=== PATIENT | female | born 1975 | race Caucasian/White ===

== ENCOUNTER 2021-05-11 17:31 | Inpatient (IN) ==
[2021-05-11] MEDS ORDERED: cephALEXin 500 MG CAPSULE PO STA (19:01)
[2021-05-11 19:44] LABS: Amphetamine Screen,Urine Positive ng/mL (Cutoff=1000); Barbiturate Screen,Urine Negative ng/mL (Cutoff=200); Benzodiazepines Screen,Urine Negative ng/mL (Cutoff=200); Cannabinoid Screen,Urine Negative ng/mL (Cutoff = 50); Cocaine Screen,Urine Negative ng/mL (Cutoff= 300); Opiate Screen,Urine Negative ng/mL (Cutoff=300); Phencyclidine Screen,Urine Negative ng/mL (Cutoff=25)
[2021-05-11] MEDS ORDERED: Haloperidol Lactate 5 MG/ML VIAL IM PRN (22:16)
[2021-05-11] MEDS ORDERED: Acetaminophen 325 MG TABLET PO PRN (22:16)
[2021-05-11] MEDS ORDERED: hydrOXYzine pamoate 25 MG CAPSULE PO PRN (22:16)
[2021-05-11] MEDS ORDERED: haloperidoL 5 MG TABLET PO PRN (22:16)
[2021-05-11] MEDS ORDERED: *HR* LORazepam 1 MG TABLET PO PRN (22:16)
[2021-05-11] MEDS ORDERED: *HR* LORazepam 2 MG/ML VIAL IM PRN (22:16)
[2021-05-12] MEDS: risperiDONE 1 MG TABLET PO SCH ×3 (00:26→20:58)
[2021-05-12] MEDS: traZODone 50 MG TABLET PO PRN ×2 (00:27→20:58)
[2021-05-12] MEDS: Nitrofurantoin (BID) 100 MG CAPSULE PO SCH ×2 (09:51→17:18)
[2021-05-12] MEDS: Ibuprofen 400 MG TABLET PO PRN (17:50)
[2021-05-13] MEDS: Nicotine 21 MG PATCH.TD24 TD SCH ×2 (00:34→21:09)
[2021-05-13] MEDS: Nitrofurantoin (BID) 100 MG CAPSULE PO SCH ×2 (09:09→17:41)
[2021-05-13] MEDS: risperiDONE 1 MG TABLET PO SCH ×2 (09:20→20:31)
[2021-05-13] MEDS: Neosporin OINT 15 GM TUBE TP SCH ×2 (13:28→21:07)
[2021-05-13] MEDS: Ibuprofen 400 MG TABLET PO PRN (14:16)
[2021-05-13] MEDS: traZODone 50 MG TABLET PO PRN (20:31)
[2021-05-14] MEDS: risperiDONE 1 MG TABLET PO SCH (08:46)
[2021-05-14] MEDS: Nitrofurantoin (BID) 100 MG CAPSULE PO SCH (08:47)
[2021-05-14] MEDS: Neosporin OINT 15 GM TUBE TP SCH (08:47)
[2021-05-14 09:10] VITALS: BP 120/87; PULSE 112; TEMP 98.3; O2SAT 98
== END 2021-05-14 14:30 | disposition home or self-care (01) | DRG 750 ==
LOC: EMEROOARM 17:31 → 1ANU 22:12
PROVIDERS: ADMIT Psychiatry & Neurology Psychiatry; ATTEND Psychiatry & Neurology Psychiatry